=== PATIENT | female | born 1995 | race Caucasian/White ===

== ENCOUNTER 2018-03-14 14:52 | Emergency (ER) | payer SELFPAY ==
[~2018-03-14] VITALS: Ht 157.5 cm; Wt 52.3 kg
[2018-03-14 14:54] VITALS: BP 118/84; TEMP 97
[2018-03-14] MEDS ORDERED: ORTHO-CYCLEN 351 TAB PO (14:57)
[2018-03-14 15:27] LABS: BASO % 0.4 % (0.0-2.0); EOS % 0.1 % (0-4.0); GRAN % 67.6 % (42.2-75.2); HEMATOCRIT 42.2 % (37.0-47.0); HEMOGLOBIN 14.2 g/dl (12.5-16.0); LYMPH # 2.4 (1.2-3.4); LYMPH % 27.2 % (20.0-51.0); MEAN CELL VOLUME 91 fl (80.0-100.0); MEAN CORPUSCULAR HEMOGLOBIN 31 pg (27.0-31.0); MEAN CORPUSCULAR HGB CONC 34 g/dl (33.0-37.0); MEAN PLATELET VOLUME 11.5 fl (7.4-10.4); MONO # 0.4 (0.1-0.6); MONO % 4.1 % (1.7-9.3); PLATELET COUNT 267 K/mm3 (130-400); RED BLOOD COUNT 4.65 M/mm3 (4.10-5.30); REDCELL DISTRIBUTION WIDTH-CV 12.6 % (11.5-14.5)
[2018-03-14 15:29] LABS: ALBUMIN 5.1 gm/dL (3.5-5.0); BILIRUBIN,TOTAL 0.4 mg/dL (0.0-1.0); CALCIUM 9.8 mg/dL (8.4-10.2); CREATININE, serum 0.7 mg/dL (0.52-1.25); POTASSIUM 3.8 mmol/L (3.4-5.0); TOTAL PROTEIN 8.5 gm/dL (6.4-8.2)
[2018-03-14] MEDS ORDERED: ZOFRAN ODT4 MG PO (16:36)
[2018-03-14 16:53] VITALS: PULSE 77
== END 2018-03-14 16:54 | disposition home or self-care (01) ==
LOC: COL.ER 14:52 → EDBD 14:53 → COL.ER 14:53
PROVIDERS: Emergency Medicine
DX: R11.2 Nausea with vomiting, unspecified (principal); F32.9 Major depressive disorder, single episode, unspecified; F41.9 Anxiety disorder, unspecified
CPT/HCPCS: J2405; J2550; J7030

== ENCOUNTER → 2020-06-16 | Outpatient (CLI) | payer MEDICAID ==
[~2020-06-16] MED LIST: MOTRIN 800800 MG/TAB PO; ORTHO-CYCLEN 351 TAB PO; PRENATAL; ZOFRAN ODT4 MG PO
[2020-06-16 18:07] VITALS: BP 111/67; PULSE 82; TEMP 98.3
== END ==
LOC: COL.ER 17:47
DX: Z48.02 Encounter for removal of sutures (principal)

== ENCOUNTER 2020-10-05 10:35 | Emergency (ER) | payer OTHER, MEDICAID ==
[~2020-10-05] VITALS: Ht 157.5 cm; Wt 45.9 kg
[2020-10-05 15:45] VITALS: BP 122/76; PULSE 84; TEMP 98.2
== END 2020-10-05 15:45 | disposition home or self-care (01) ==
LOC: COL.ER 10:35
DX: R10.9 Unspecified abdominal pain (principal); R11.2 Nausea with vomiting, unspecified
CPT/HCPCS: J1885; J2405; J3010; J7120; Q9967

== ENCOUNTER 2020-10-06 00:19 | Observation (INO) | payer OTHER, MEDICAID ==
[~2020-10-06] VITALS: Ht 157.5 cm; Wt 45.9 kg
[2020-10-06 00:56] LABS: BASO # 0.1 (0.0-0.2); BASO % 0.5 % (0.0-2.0); EOS % 0.2 % (0-4.0); GRAN # 9.7 (1.4-6.5); GRAN % 76.7 % (42.2-75.2); HEMOGLOBIN 12.5 g/dl (12.5-16.0); LYMPH # 1.6 (1.2-3.4); LYMPH % 12.8 % (20.0-51.0); MEAN CELL VOLUME 96 fl (80.0-100.0); MEAN CORPUSCULAR HEMOGLOBIN 33 pg (27.0-31.0); MEAN CORPUSCULAR HGB CONC 34 g/dl (33.0-37.0); MEAN PLATELET VOLUME 9.8 fl (7.4-10.4); MONO # 1.1 (0.1-0.6); MONO % 8.6 % (1.7-9.3); PLATELET COUNT 226 K/mm3 (130-400); RED BLOOD COUNT 3.85 M/mm3 (4.10-5.30); REDCELL DISTRIBUTION WIDTH-CV 11.9 % (11.5-14.5)
[2020-10-06 01:06] LABS: ALBUMIN 4.3 gm/dL (3.5-5.0); BILIRUBIN,TOTAL 0.8 mg/dL (0.0-1.0); C-REACTIVE PROTEIN 7.5 mg/dL (0.0-0.9); CALCIUM 9.2 mg/dL (8.4-10.2); CREATININE, serum 0.57 (0.52-1.25); POTASSIUM 4.2 mmol/L (3.4-5.0); TOTAL PROTEIN 7.5 gm/dL (6.4-8.2)
[2020-10-06 01:21] LABS: COLLECTION METHOD CLEAN CATCH
[2020-10-06 01:29] LABS: AMORPHOUS CRYSTAL Present /uL; MUCOUS Present /lpf; PH 5 (5-8); URINE APPEARANCE Hazy; URINE BACTERIA None Seen /hpf; URINE BILIRUBIN Negative (NEGATIVE); URINE BLOOD 3+ (NEGATIVE); URINE COLOR Yellow; URINE GLUCOSE Negative (NEGATIVE); URINE KETONE Negative (NEGATIVE); URINE LEUKOCYTE ESTERASE Trace (NEGATIVE); URINE NITRATE Negative (NEGATIVE); URINE PROTEIN(semi-quant) 1+ (NEGATIVE); URINE RBC 0-2 /hpf
--- NOTE | 2020-10-06 04:42 | NUR ---
PATIENT ARRIVED TO ROOM 352 VIA WHEELCHAIR FROM THE ED. PATIENT ALERT AND ORIENTED X'S4, ON ROOM AIR, AMBULATED TO BED, AND ORIENTED TO ROOM AT THIS TIME. PATIENT IS REPORTING A PAIN LEVEL OF 8/10 WHEN SHE MOVES BUT IS TOLERABLE WHEN SHE'S LAYING STILL.
[2020-10-06 08:39] VITALS: BP 127/55; PULSE 87; TEMP 98.5
[2020-10-06 10:21] LABS: COLLECTION METHOD CLEAN CATCH
--- NOTE | 2020-10-06 10:47 | NUR ---
Initial visit; Patient and her mom thanked Fish Technologist for looking in on her and offering encouragement and God's blessings.
[2020-10-06 11:21] VITALS: BP 117/63; PULSE 77; TEMP 98.4
[2020-10-06 12:19] LABS: ALBUMIN 5.1 gm/dL (3.5-5.0); BILIRUBIN,TOTAL 1.3 mg/dL (0.0-1.0); CALCIUM 10.1 mg/dL (8.4-10.2); CREATININE, serum 0.7 (0.52-1.25); PH 6 (5-8); POTASSIUM 4.1 mmol/L (3.4-5.0); TOTAL PROTEIN 8.7 gm/dL (6.4-8.2); URINE APPEARANCE Cloudy; URINE COLOR Amber
[2020-10-06 12:20] LABS: AMORPHOUS CRYSTAL Present /uL; MUCOUS Present /lpf; SQUAMOUS EPITHELIAL 0-2 /hpf; URINE BACTERIA Rare /hpf; URINE BILIRUBIN Negative (NEGATIVE); URINE BLOOD Negative (NEGATIVE); URINE GLUCOSE Negative (NEGATIVE); URINE KETONE Negative (NEGATIVE); URINE LEUKOCYTE ESTERASE Negative (NEGATIVE); URINE NITRATE Negative (NEGATIVE); URINE PROTEIN(semi-quant) 1+ (NEGATIVE); URINE RBC 0-2 /hpf; URINE UROBILINOGEN Negative (NEGATIVE)
--- NOTE | 2020-10-06 13:19 | NUR ---
BEDSIDE REPORT RECIEVED FROM LISET CAMPBELL. PATIENT C/O RIGHT SIDED ABDOMINAL PAIN THAT INCREASED WITH MOVEMENT. PAIN RATED 9/10. PRN DILAUDID GIVEN AT 0813. REEVALUATED PAIN. PATIENT RATED 8/10. PRN DILAUDID GIVEN AT 0900. PAIN REEVALUATED. PATIENT RATED 5/10. PATIENT COMPLAINED OF NAUSEA, PRN ZOFRAN GIVEN AT 0849. WILL CONTINUE TO MONITOR. BED IN LOWEST POSITION. CALL LIGHT WITHIN REACH.
--- NOTE | 2020-10-06 14:44 | NUR ---
DR GONZALEZ ROUNDED. PATIENT PLACED ON ROCEPHIN FOR PYELONEPHRITIS AND UTI. NS RATE CHANGED TO 100 ML/HR. DIET CHANGED TO GENERAL. PATIENT REPORTED THAT HER PAIN AND NAUSEA HAVE IMPROVED. PATIENT STATED THAT SHE DOES NOT FEEL THE NEED FOR DILAUDID OR ZOFRAN AT THIS TIME. PATIENT REPORTS HAVING DIARHEA AFTER SHE RECIEVED THE ROCEPHIN. PATIENT WAS ABLE TO EAT 25% OF HER ORDERED MEAL WITH NO COMPLAINTS. PATIENT IS CURRENTLY LAYING IN BED RESTING. BED IN LOWEST POSITION. CALL LIGHT WITHIN REACH. WILL CONTINUE TO MONITOR.
[2020-10-06 14:51] LABS: BASO % 0.4 % (0.0-2.0); EOS % 0.2 % (0-4.0); GRAN # 7.8 (1.4-6.5); GRAN % 76.2 % (42.2-75.2); HEMATOCRIT 43.9 % (37.0-47.0); HEMOGLOBIN 14.6 g/dl (12.5-16.0); LYMPH # 1.6 (1.2-3.4); LYMPH % 15.7 % (20.0-51.0); MEAN CELL VOLUME 98 fl (80.0-100.0); MEAN CORPUSCULAR HEMOGLOBIN 33 pg (27.0-31.0); MEAN CORPUSCULAR HGB CONC 33 g/dl (33.0-37.0); MEAN PLATELET VOLUME 9.8 fl (7.4-10.4); MONO # 0.8 (0.1-0.6); MONO % 7.3 % (1.7-9.3); PLATELET COUNT 245 K/mm3 (130-400); RED BLOOD COUNT 4.49 M/mm3 (4.10-5.30); REDCELL DISTRIBUTION WIDTH-CV 12.1 % (11.5-14.5)
--- NOTE | 2020-10-06 16:38 | NUR ---
PATIENT C/O PAIN IN HER RUQ. RATES IT A 03/21. PRN DILAUDID GIVEN. WILL CONTINUE TO MONITOR. BED IN LOWEST POSITION. CALL LIGHT WITHIN REACH.
[2020-10-06 17:04] VITALS: BP 120/70; PULSE 76; TEMP 98.5
--- NOTE | 2020-10-06 17:31 | NUR ---
PATIENT WAS COMPLAING OF CONTINUING SPASMS IN HER RUQ. SHE RATED THEM A 8/10. I CONTACTED DR. GONZALEZ REGARDING THESE SPASMS AND HE STATED THAT THEY WERE A RESULT OF HER CURRENT KIDNEY INFECTION. HE PRESCRIBED THE PATIENT 1-2 NORCO EVERY 4 HOURS PRN. I GAVE THE PATIENT 1 NORCO AT 1710 AND WILL CONTINUE TO CLOSELY MONITOR HER PAIN LEVEL. PATIENT IS CURRENLTY RESTING IN BED. BED IN LOWEST POSITION. CALL LIGHT WITHIN REACH. WILL CONTINUE TO MONITOR.
--- NOTE | 2020-10-06 18:53 | NUR ---
BEDSIDE REPORT GIVEN TO LISET CAMPBELL. PATIENT IS NOT CURRENTLY C/O ANY PAIN. PATIENT IS SITTING UP IN BED EATING. BED IN THE LOWEST POSITION. CALL LIGHT WITHIN REACH.
[2020-10-06 20:29] VITALS: BP 122/63; PULSE 82; TEMP 98.4
[2020-10-06 23:26] VITALS: BP 105/69; PULSE 54; TEMP 97.7
[2020-10-07 03:30] VITALS: BP 122/72; PULSE 65; TEMP 98
[2020-10-07 06:58] LABS: HEMOGLOBIN 9.9 g/dl (12.5-16.0); MEAN CORPUSCULAR HEMOGLOBIN 32 pg (27.0-31.0); RED BLOOD COUNT 3.14 M/mm3 (4.10-5.30)
[2020-10-07 06:59] LABS: BASO % 0.5 % (0.0-2.0); EOS # 0.1 (0.0-0.7); EOS % 1.1 % (0-4.0); GRAN # 3.4 (1.4-6.5); GRAN % 52.3 % (42.2-75.2); HEMATOCRIT 30.9 % (37.0-47.0); LYMPH # 2.5 (1.2-3.4); LYMPH % 38.4 % (20.0-51.0); MEAN CELL VOLUME 98 fl (80.0-100.0); MEAN CORPUSCULAR HGB CONC 32 g/dl (33.0-37.0); MEAN PLATELET VOLUME 10.5 fl (7.4-10.4); MONO # 0.5 (0.1-0.6); MONO % 7.5 % (1.7-9.3); PLATELET COUNT 189 K/mm3 (130-400); REDCELL DISTRIBUTION WIDTH-CV 12.2 % (11.5-14.5)
--- NOTE | 2020-10-07 07:02 | NUR ---
REPORT RECIEVED FROM LISET CAMPBELL. PATIENT IS CURRENTLY C/O SLIGHT DISCOMFORT WITH MOVEMENT. WILL CONTINUE TO MONITOR. BED IN LOWEST POSITION. CALL LIGHT WITHIN REACH.
--- NOTE | 2020-10-07 07:26 | NUR ---
NOTIFIED DR. GONZALEZ OF HGB LEVEL OF 9.9. TOLD HIM THAT THE PATIENT STATES THAT SHE IF FEELING BETTER THAN YESTERDAY, BUT IS STILL FEELING DISCOMFORT WITH MOVEMENT. SHE IS EXPERIENCING SOME ITCHING AFTER TAKING THE NORCO. BUT HAS NO VISIBLE HIVES. CARLOS STATED THAT HE WILL BE UP TO ASSESS HER SHORTLY.
[2020-10-07 07:51] VITALS: BP 117/81; PULSE 64; TEMP 97.7
[2020-10-07 08:29] VITALS: BP 130/77; PULSE 62; TEMP 98.3
[2020-10-07] MEDS ORDERED: NORCO 325 MG-51 TAB PO (10:55)
[2020-10-07] MEDS ORDERED: LEVAQUIN 5500 MG/TA1 PO (10:57)
--- NOTE | 2020-10-07 10:58 | NUR ---
PATIENT VOMITTED 100 ML OF CLEAR FLUID. STATES THAT SHE FEELS MUCH BETTER FOLLOWING THE EPISODE. HAS NOT REPORTED ANY N/V SINCE THE INITIAL EPISODE. PATIENT REPORTS THAT THE NORCO IS KEEPING HER AT A MANAGABLE PAIN LEVEL. PATIENT HAS NO CONCERNS AT THIS TIME. WILL CONTINUE TO MONITOR. BED IN LOWEST POSITION. CALL LIGHT WITHIN REACH.
--- NOTE | 2020-10-07 13:26 | NUR ---
Nurse Head met with the patient to complete intake. The patient lives independently in [place] with her son. The patient declines DME use. The patient's PCP is Dr. Pena and patient receives medications from [facility]. The patient plans to return home at discharge and a friend providing transporation. There are no additional needs at this time.
[2020-10-07] MEDS ORDERED: ZOFRAN 4MG T4 MG/TAB PO (14:49)
--- NOTE | 2020-10-07 15:13 | NUR ---
PATIENT'S IV D/C. PATIENT DISCHARGED. PATIENT ESCORTED TO THE ER ENTRANCE. FAMILY PICKED HER UP TO TRANSPORT HER HOME.
== END 2020-10-07 14:30 | disposition home or self-care (01) ==
LOC: COL.ER 00:19 → MEDICAL 03:12
PROVIDERS: Emergency Medicine; ADMIT Surgery
DX: K52.9 Noninfective gastroenteritis and colitis, unspecified (principal); Z87.440 Personal history of urinary (tract) infections; Z87.891 Personal history of nicotine dependence
CPT/HCPCS: G0378; J0696; J1170; J2405; J2543; J3010; J7030; Q9967

== ENCOUNTER 2022-04-23 11:48 | Emergency (ER) | payer OTHER, MEDICAID ==
[~2022-04-23] VITALS: Ht 157.5 cm; Wt 48.2 kg
[~2022-04-23 11:48] MED LIST changes: +LEVAQUIN 5500 MG/TA1 PO; +NORCO 325 MG-51 TAB PO; +ZOFRAN 4MG T4 MG/TAB PO
[2022-04-23 12:10] VITALS: TEMP 98.3
[2022-04-23 13:29] LABS: BASO # 0.1 K/mm3 (0.0-0.2); BASO % 1.1 % (0.0-2.0); EOS # 0.2 K/mm3 (0.0-0.7); EOS % 2.8 % (0.0-4.0); GRAN # 4.1 K/mm3 (1.4-6.5); GRAN % 72.6 % (42.2-75.2); HEMOGLOBIN 13.5 g/dl (12.5-16.0); LYMPH # 0.9 K/mm3 (1.2-3.4); LYMPH % 16.3 % (20.0-51.0); MEAN CELL VOLUME 101 fl (80.0-100.0); MEAN CORPUSCULAR HEMOGLOBIN 35 pg (27-31); MEAN CORPUSCULAR HGB CONC 35 g/dl (33.0-37.0); MONO # 0.4 K/mm3 (0.1-0.6); MONO % 6.8 % (1.7-9.3); PLATELET COUNT 209 K/mm3 (130-400); RED BLOOD COUNT 3.87 M/mm3 (4.10-5.30); REDCELL DISTRIBUTION WIDTH-CV 11.9 % (11.5-14.5)
[2022-04-23 13:49] LABS: ALBUMIN 4.6 gm/dL (3.5-5.0); BILIRUBIN,TOTAL 1.4 mg/dL (0.2-1.2); C-REACTIVE PROTEIN 0.04 mg/dL (0.00-0.50); CALCIUM 9.8 mg/dL (8.4-10.2); CREATININE, serum 0.79 mg/dL (0.57-1.11); POTASSIUM 4.2 mmol/L (3.5-4.5); TOTAL PROTEIN 7.5 gm/dL (6.2-8.1)
[2022-04-23 16:04] LABS: COLLECTION METHOD CLEAN CATCH
[2022-04-23 16:08] LABS: URINE APPEARANCE Clear (CLEAR/HAZY); URINE COLOR Amber (YELLOW)
[2022-04-23 16:09] LABS: URINE BLOOD Negative (NEGATIVE); URINE GLUCOSE Negative (NEGATIVE); URINE KETONE 4+ (NEGATIVE); URINE NITRATE Positive (NEGATIVE); URINE PROTEIN(semi-quant) 1+ (NEGATIVE)
[2022-04-23 16:11] LABS: MUCOUS Present (NOT PRESENT); URINE BACTERIA None Seen /hpf (NONE SEEN)
[2022-04-23] MEDS ORDERED: ZOFRAN ODT4 MG PO (16:37)
[2022-04-23 16:58] VITALS: BP 126/89; PULSE 64
== END 2022-04-23 17:00 | disposition home or self-care (01) ==
LOC: COL.ER 11:48
PROVIDERS: Nurse Practitioner
DX: R11.2 Nausea with vomiting, unspecified (principal); R10.13 Epigastric pain; F17.290 Nicotine dependence, other tobacco product, uncomplicated; Z32.02 Encounter for pregnancy test, result negative; Z20.822 Contact with and (suspected) exposure to COVID-19; Z28.310 Unvaccinated for COVID-19
CPT/HCPCS: J1885; J2405; J7030

== ENCOUNTER 2024-06-12 09:21 | Emergency (ER) | payer OTHER ==
[~2024-06-12] VITALS: Ht 157.5 cm; Wt 54.5 kg
[~2024-06-12 09:21] MED LIST changes: +CEFTIN500 MG PO; +DEPO-PROVER150 MG/M1 IM; +INDERAL LA 60MG60 MG; +LIBRIUM 25M25 MG/CAP; +LIBRIUM 25M25 MG/CAP PO; +PHENERGAN 25 TA25 MG PO; +PHENERGAN25 MG RC; +PREDFORTE5ML; +VIIBRYD40 MG PO; +VITAMIN D 50,1.25 MG PO
[2024-06-12 09:30] VITALS: BP 118/75; TEMP 98.4
[2024-06-12 11:35] VITALS: PULSE 74
== END 2024-06-12 11:39 | disposition home or self-care (01) ==
LOC: COL.ER 09:21
DX: S63.502A Unspecified sprain of left wrist, initial encounter (principal); S00.81XA Abrasion of other part of head, initial encounter; S80.211A Abrasion, right knee, initial encounter; W01.0XXA Fall on same level from slipping, tripping and stumbling without subsequent striking against object, initial encounter; Y93.02 Activity, running